=== PATIENT | male | born 1970 | race Caucasian/White ===

== ENCOUNTER → 2017-07-25 | Outpatient (CLI) | payer OTHER | LOC: MRI 09:06 | DX: M47.22 Other spondylosis with radiculopathy, cervical region (principal); M48.02 Spinal stenosis, cervical region ==

== ENCOUNTER → 2017-12-15 | Outpatient (CLI) | payer BC, OTHER | LOC: RAD 08:59 | DX: R07.81 Pleurodynia (principal); R07.89 Other chest pain; R05 Cough; M19.012 Primary osteoarthritis, left shoulder ==